=== PATIENT | male | born 1980 | race Caucasian/White ===

== ENCOUNTER 2018-04-02 02:49 | Emergency (ER) | payer OTHER ==
[~2018-04-02] VITALS: Ht 172.7 cm; Wt 77.1 kg
[~2018-04-02 02:49] MED LIST: ELIMITE60 GM TP; NOHOMEMEDICATIONS
[2018-04-02] MEDS ORDERED: BACTRIM DS TAB1 EACH PO (03:09)
[2018-04-02] MEDS ORDERED: KEFLEX500 M1 PO (03:09)
[2018-04-02] MEDS ORDERED: HYDROCODONE-AP1 EAC6 PO (03:09)
[2018-04-02 03:29] VITALS: BP 143/79
== END 2018-04-02 03:31 | disposition home or self-care (01) ==
LOC: M.ERS 02:49
DX: L03.113 Cellulitis of right upper limb (principal)